=== PATIENT | male | born 1965 | race Caucasian/White ===

== ENCOUNTER → 2024-04-05 13:08 | Outpatient (BNVA) | payer MEDICARE, MEDICAID, SELFPAY | PROVIDERS: Family Provider Nurse Practitioner Family; PCP Nurse Practitioner Family; Referring Provider Nurse Practitioner Family; Visit Provider Internal Medicine Cardiovascular Disease | DX: G47.33 Obstructive sleep apnea (adult) (pediatric) (principal); E11.9 Type 2 diabetes mellitus without complications; E78.5 Hyperlipidemia, unspecified; Z86.79 Personal history of other diseases of the circulatory system; I10 Essential (primary) hypertension; Z87.891 Personal history of nicotine dependence | CPT/HCPCS: 99204 ==

== ENCOUNTER → 2024-09-26 13:01 | Outpatient (BNVA) | payer MEDICARE, MEDICAID, SELFPAY | PROVIDERS: Family Provider Nurse Practitioner Family; PCP Nurse Practitioner Family; Visit Provider Nurse Practitioner Family | DX: I10 Essential (primary) hypertension (principal); Z86.79 Personal history of other diseases of the circulatory system; G47.33 Obstructive sleep apnea (adult) (pediatric); E11.9 Type 2 diabetes mellitus without complications; Z87.891 Personal history of nicotine dependence | CPT/HCPCS: 99213 ==

== ENCOUNTER 2025-07-21 14:20 | Observation (INO) | payer MEDICARE, MEDICAID, SELFPAY ==
[2025-07-21] VITALS (11 sets, daily range): BP systolic 113–145; BP diastolic 66–81; PULSE 72–92; RESP 16–21; TEMP 36.3–36.4; O2SAT 91–95; BMI 34.7; BMI 35.6
--- OUTSIDE RECORDS SUMMARY | 2025-07-21 14:27 | XMS_ITS | Encounter Summary ---
Author Organization [facility] Address [address] [place] [address] Care Team Providers Care Railroad Car Cleaner Name Role Phone Brigido Mahajan MD Primary Care Provider [phone] [phone] Encounter Details Date Type Department Care Team (Latest Contact Info) Description 01/14/[address] 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
--- OUTSIDE RECORDS SUMMARY | 2025-07-21 14:27 | XMS_ITS | Encounter Summary ---
Author Organization [facility] Address [address] [place] [address] Care Team Providers Care Tree Sapper Name Role Phone Brigido Mahajan MD Primary Care Provider Encounter Details Date Type Department Care Team (Latest Contact Info) Description 05/06/2006 Outpatient Historical [facility] Cardiology- [place] [address] [address] Jeremias Mayen MD [address] [address] Atrial Fibrillation (CMS/HCC) (Primary Dx) Social History Tobacco Use Types Packs/Day Years Used Date Smoking Tobacco: Never Assessed Sex and Gender Information Value Date Recorded Sex Assigned at Not on file 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
--- OUTSIDE RECORDS SUMMARY | 2025-07-21 14:27 | XMS_ITS | Encounter Summary ---
Author Organization [facility] Address [address] [place] [address] Care Team Providers Care Cisco Certified Internetwork Expert Name Role Phone Brigido Mahajan MD Primary Care Provider [phone] Encounter Details Date Type Department Care Team (Latest Contact Info) Description 05/20/2006 Outpatient Historical [facility] [address] [place] [address] Turner Flynn MD NO ADDRESS ON FILE Obstructive Sleep Apnea (Primary Dx) Social History Tobacco Use Types Packs/Day Years Used Date Smoking Tobacco: Never Assessed Sex and Gender Information Value Date Recorded Sex Assigned at Not on file 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
--- OUTSIDE RECORDS SUMMARY | 2025-07-21 14:27 | XMS_ITS | Encounter Summary ---
Author Organization [facility] Address [address] [place] [address] Care Team Providers Care Sand Conditioner Name Role Phone Brigido Mahajan MD Primary Care Provider Encounter Details Date Type Department Care Team (Latest Contact Info) Description 02/04/2006 Outpatient Historical [facility] Cardiology- [place] [address] [place] [address] Jeremias Mayen MD [address] [address] Palpitations (Primary Dx); Atrial Fibrillation (CMS/HCC) Social History Tobacco Use Types Packs/Day Years Used Date Smoking Tobacco: Never Assessed Sex and Gender Information Value Date Recorded Sex Assigned at Not on file 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
--- OUTSIDE RECORDS SUMMARY | 2025-07-21 14:27 | XMS_ITS | Encounter Summary ---
Author Organization [facility] Address [address] [place] [address] Care Team Providers Care Sped Teacher Name Role Phone Brigido Mahajan MD Primary Care Provider [phone] Encounter Details Date Type Department Care Team (Latest Contact Info) Description 04/07/2006 Outpatient Historical [facility] Cardiology- [place] [address] [place] [address] Nikki Chowdary MD [address] [place] [address] Paroxysmal Supraventricular Tachycardia (Primary Dx); Atrial Fibrillation (CMS/HCC) Social History Tobacco Use Types Packs/Day Years Used Date Smoking Tobacco: Never Assessed Sex and Gender Information Value Date Recorded Sex Assigned at Not on file 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
--- OUTSIDE RECORDS SUMMARY | 2025-07-21 14:27 | XMS_ITS | Encounter Summary ---
Author Organization [facility] Address [address] [place] [address] Care Team Providers Care Ham Pumper Name Role Phone Brigido Mahajan MD Primary Care Provider Encounter Details Date Type Department Care Team (Latest Contact Info) Description 02/04/2006 Outpatient Historical [facility] Cardiovascular Services [address] [place] [address] Jeremias Mayen MD [address] [address] Supraventricular Premature Beats (Primary Dx) Social History Tobacco Use Types Packs/Day Years Used Date Smoking Tobacco: Never Assessed Sex and Gender Information Value Date Recorded Sex Assigned at Not on file 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
--- OUTSIDE RECORDS SUMMARY | 2025-07-21 14:27 | XMS_ITS | Encounter Summary ---
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
--- OUTSIDE RECORDS SUMMARY | 2025-07-21 14:27 | XMS_ITS | Encounter Summary ---
Author Organization [facility] Address [address] [place] [address] Care Team Providers Care Maintenance Parts Technician Name Role Phone Brigido Mahajan MD Primary Care Provider [phone] Encounter Details Date Type Department Care Team (Latest Contact Info) Description 12/09/2006 Outpatient Historical [facility] Cardiology- [place] [address] [place] [address] Jeremias Mayen MD [address] [address] Unspecified Hypertensive Heart Disease without Heart Failure (Primary Dx); Atrial Fibrillation (CMS/HCC); Unspecified Chest Pain Social History Tobacco Use Types Packs/Day Years Used Date Smoking Tobacco: Never Assessed Sex and Gender Information Value Date Recorded Sex Assigned at Not on file Legal Sex Male 3:58 AM PATIENT CARE REPRESENTATIVE Gender Identity Not on file Sexual Orientation Not on file documented as of this encounter Plan of Treatment Not on file documented as of this encounter Visit Diagnoses Diagnosis Unspecified hypertensive heart disease without heart failure- Primary Atrial fibrillation (CMS/HCC) Atrial fibrillation Chest pain, unspecified documented in this encounter Care Teams Maintenance Parts Technician Relationship Specialty Start Date End Date Brigido Mahajan MD [address] [place], [place] [address] PCP - General Family Practice 04/11/16 documented as of this encounter
--- OUTSIDE RECORDS SUMMARY | 2025-07-21 14:27 | XMS_ITS | Encounter Summary ---
Author Organization [facility] Address [address] [place] [address] Care Team Providers Care Program Engagement Director Name Role Phone Brigido Mahajan MD Primary Care Provider [phone] Encounter Details Date Type Department Care Team (Latest Contact Info) Description 05/20/2006 Outpatient Historical [facility] [address] [place] [address] Turner Flynn MD NO ADDRESS ON FILE Other Dyspnea and Respiratory Abnormality (Primary Dx) Social History Tobacco Use Types Packs/Day Years Used Date Smoking Tobacco: Never Assessed Sex and Gender Information Value Date Recorded Sex Assigned at Not on file 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
--- OUTSIDE RECORDS SUMMARY | 2025-07-21 14:27 | XMS_ITS | Encounter Summary ---
Author Organization [facility] Address [address] [place] [address] Care Team Providers Care Gum Rolling Machine Operator Name Role Phone Brigido Mahajan MD Primary Care Provider [phone] Encounter Details Date Type Department Care Team (Latest Contact Info) Description 07/01/[address] 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
--- OUTSIDE RECORDS SUMMARY | 2025-07-21 14:27 | XMS_ITS | Encounter Summary ---
Author Organization [facility] Address [address] [place] [address] Care Team Providers Care Cold Press Loader Name Role Phone Unavailable Primary Care Provider Unavailabl e Encounter Details Date Type Department Care Team (Late st Contact Info) Description 07/18/2025 External Device Data ST[facility] ABSTRACTION Provider, Abstract NO ADDRESS ON FILE Social History Tobacco Use Types Packs/Day Years Used Date Smoking Tobacco: Former Cigarettes Q uit: 11/09/2007 Alcohol Use Standard Drinks/Week Comments No 0 (1 standard drink = 0.6 oz pur e alcohol) Sex and Gender Information Value Date Recorded Sex Assigned at Not on file Legal Sex Male 11:19 AM FRAUD EXAMINER Gender Identity Not on file Sexual Orientation Not on file documented as of this encounter Plan of Treatment Not on file documented as of this encounter Visit Diagnoses Not on filedocumented in this encounter
--- OUTSIDE RECORDS SUMMARY | 2025-07-21 14:28 | XMS_ITS | Encounter Summary ---
Author Organization [facility] Address [address] [place] [address] Care Team Providers Care Debt Management Counselor Name Role Phone Brigido Mahajan MD Primary Care Provider [phone] Encounter Details Date Type Department Care Team (Latest Contact Info) Description 12/11/2006 Outpatient Historical [facility] Cardiovascular Services [address] [place] [address] Jeremias Mayen MD [address] [address] Unspecified Chest Pain (Primary Dx) Social History Tobacco Use Types Packs/Day Years Used Date Smoking Tobacco: Never Assessed Sex and Gender Information Value Date Recorded Sex Assigned at Not on file 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
--- OUTSIDE RECORDS SUMMARY | 2025-07-21 14:28 | XMS_ITS | Encounter Summary ---
Author Organization [facility] Address [address] [place] [address] Care Team Providers Care Vocational Teacher Name Role Phone Brigido Mahajan MD Primary Care Provider Encounter Details Date Type Department Care Team (Latest Contact Info) Description 08/16/1999 Outpatient Historical [facility] [address] [address] Kady Matt MD [address] [place] [phone] Acute tonsillitis (Primary Dx) Social History Tobacco Use Types Packs/Day Years Used Date Smoking Tobacco: Never Assessed Sex and Gender Information Value Date Recorded Sex Assigned at Not on file Legal Sex Male 3:58 AM LEAD CAREGIVER Gender Identity Not on file Sexual Orientation Not on file documented as of this encounter Plan of Treatment Not on file documented as of this encounter Visit Diagnoses Diagnosis Acute tonsillitis- Primary documented in this encounter Care Teams Vocational Teacher Relationship Specialty Start Date End Date Brigido Mahajan MD [address] [place] [address] PCP - General Family Practice 04/11/16 documented as of this encounter
--- OUTSIDE RECORDS SUMMARY | 2025-07-21 14:28 | XMS_ITS | Encounter Summary ---
Author Organization [facility] Address [address] [place] [address] Care Team Providers Care Surgical Tech Name Role Phone Brigido Mahajan MD Primary Care Provider Encounter Details Date Type Department Care Team (Late st Contact Info) Description 12/11/2006 Outpatient Historical [facility] Cardiology Ancillary Services-[place] [address] [place] [address] Jeremias Mayen MD [address] [facility] [address] [place] [address] Unspecified Chest Pain (Primary Dx) Social History Tobacco Use Types Packs/Day Years Used Date Smoking Tobacco: Never Assessed Sex and Gender Information Value Date Recorded Sex Assigned at Not on file Legal Sex Male 3:58 AM DRAPERY AND UPHOLSTERY MEASURER Gender Identity Not on file Sexual Orientation Not on file documented as of this encounter Plan of Treatment Not on file documented as of this encounter Procedures Procedure Name Priority Date/Time Associated Diagnosis Comments NM MYOCARD PERF IMAG SPECT MULT Routine 12/11/2006 8:30 AM DRAPERY AND UPHOLSTERY MEASURER NM MYOCARD PERF IMAG SPECT MULT Routine 12/11/2006 8:30 AM DRAPERY AND UPHOLSTERY MEASURER documented in this encounter Results * NM MYOCARD PERF IMAG SPECT MULT (12/11/2006 8:30 AM DRAPERY AND UPHOLSTERY MEASURER) 12/11/2006 8:30 AM DRAPERY AND UPHOLSTERY MEASURER Narrative INTERFACE SYSTEM - 12/11/2006 8:30 AM DRAPERY AND UPHOLSTERY MEASURER MYOCARDIAL PERFUSION SPECTROSCOPY / STRESS AND REST IMAGES Indication: Chest pain. Radiopharmaceutical agent used. Tc-99m (technetium-99m) tetrofosmin with 17.2 mCi for rest and 51.9 mCi for stress. Findings: Planar images demonstrate grossly normal left ventricular chamber dimension without any significant radiopharmaceutical uptake in the lung persaud. Tomographic images demonstrate homogeneous radiopharmaceutical agent uptake in the myocardium without any reversible defect nor fixed defect. Gated images demonstrate normal left ventricular systolic function with a calculated ejection fraction of 66% with end-diastolic volume of 76 mL and end-systolic of 26 mL and normal left ventricular wall motion. IMPRESSION: 1. No obvious ischemia noted. 2. Normal left ventricular systolic function. 3. Overall low risk study. [facility] 155 Dictated By: Jeremias Mayen Electronically Signed By: Jeremias Mayen Date Signed: 12/18/06 [facility] Procedure Note 09/28/2009 MYOCARDIAL PERFUSION SPECTROSCOPY / STRESS AND REST IMAGES Indication: Chest pain. Radiopharmaceutical agent used. Tc-99m (technetium-99m) tetrofosmin with17.2 mCi for rest and 51.9 mCi for stress. Findings: Planar images demonstrate grossly normal left ventricular chamberdimension without any significant radiopharmaceutical uptake in the lung persaud. Tomographic images demonstrate homogeneous radiopharmaceutical agentuptake in the myocardium without any reversible defect nor fixed defect. Gated images demonstrate normal left ventricular systolic function with acalculated ejection fraction of 66% with end-diastolic volume of 76 mL and end-systolic of 26 mL andnormal left ventricular wall motion. IMPRESSION: 1. No obvious ischemia noted. 2. Normal left ventricular systolic function. 3. Overall low risk study. [facility] 155 Dictated By: Jeremias Mayen Electronically Signed By: Jeremias Mayen Date Signed: 12/18/06 [facility] us Jeremias DONAHUE ORDERABLES Final Result INTERFACE SYSTEM Refer to clinic/hospital department * NM MYOCARD PERF IMAG SPECT MULT (12/11/2006 8:30 AM DRAPERY AND UPHOLSTERY MEASURER) 12/11/2006 8:30 AM DRAPERY AND UPHOLSTERY MEASURER Narrative INTERFACE SYSTEM - 12/11/2006 8:[address] [facility] CARDIAC STRESS TEST WITH TREADMILL, MONITORING, AND INTERPRETATION: INDICATION: Chest pain, hypertension, hyperlipidemia, tobacco use, atrial fibrillation. Resting blood pressure was 148/90 mmHg with a heart rate of 98 beats per minute. Peak blood pressure was 196/70 mmHg. Peak heart rate achieved was 165 beats per minute (92% of maximal predicted heart rate). Resting electrocardiogram showed sinus rhythm at 96 beats per minute, RSR pattern. With exercise, the patient developed 0.5 to 1 mm of up-sloping ST depression. No arrhythmias were seen. The patient walked 9 minutes on a standard Michael protocol. Test was discontinued due to shortness of breath, fatigue, and reported chest tightness. Total workload achieved was 10.1 METs with a double-product of 31,350. At 8 minutes into exercise, 51.9 mCi of Tc-99m (technetium-99m) tetrofosmin were injected. IMPRESSION: 1. Patient reported chest tightness during treadmill. 0.5 to 1 mm of up-sloping ST depression was noted which does not meet diagnostic criteria for ischemia at moderate workload and 92% of maximal predicted heart rate. 2. Good exercise tolerance, attaining 10.1 METs of workload. 3. Results of myocardial perfusion imaging will be reported separately. gissel Dictated By: Liu Torres M.D. Electronically Signed By: Liu Torres M.D. Date Signed: 12/14/06 [facility] Procedure Note 09/28/2009 CARDIAC STRESS TEST WITH TREADMILL, MONITORING, AND INTERPRETATION: INDICATION: Chest pain, hypertension, hyperlipidemia, tobacco use, atrialfibrillation. Resting blood pressure was 148/90 mmHg with a heart rate of 98 beats perminute. Peak blood pressure was 196/70 mmHg. Peak heart rate achieved was 165 beats per minute (92% ofmaximal predicted heart rate). Resting electrocardiogram showed sinus rhythm at 96 beats per minute, RSRpattern. With exercise, the patient developed 0.5 to 1 mm of up-sloping ST depression. No arrhythmiaswere seen. The patient walked 9 minutes on a standard Michael protocol. Test wasdiscontinued due to shortness of breath, fatigue, and reported chest tightness. Total workload achievedwas 10.1 METs with a double-product of 31,350. At 8 minutes into exercise, 51.9 mCi of Tc-99m (technetium-99m)tetrofosmin were injected. IMPRESSION: 1. Patient reported chest tightness during treadmill. 0.5 to 1 mm ofup-sloping ST depression was noted which does not meet diagnostic criteria for ischemia at moderate workloadand 92% of maximal predicted heart rate. 2. Good exercise tolerance, attaining 10.1 METs of workload. 3. Results of myocardial perfusion imaging will be reported separately. gissel Dictated By: Liu Torres M.D. Electronically Signed By: Liu Torres M.D. Date Signed: 12/14/06 [facility] us Jeremias Mayen MD NM ORDERABLES Final Result INTERFACE SYSTEM Refer to clinic/hospital department documented in this encounter Visit Diagnoses Diagnosis Chest pain, unspecified- Primary documented in this encounter Care Teams Surgical Tech Relationship Specialty Start Date End Date Brigido Mahajan MD [address] [place] [address] PCP - General Family Practice 04/11/16 documented as of this encounter
--- OUTSIDE RECORDS SUMMARY | 2025-07-21 14:28 | XMS_ITS | Encounter Summary ---
Author Organization [facility] Address [address] [place] [address] Care Team Providers Care Weaver Wire Loom Name Role Phone Brigido Mahajan MD Primary Care Provider [phone] Encounter Details Date Type Department Care Team (Late st Contact Info) Description 09/13/2004 Emergency [facility] Emergency Department [address] [place] [id number] Hugo Moreno MD [facility] [place] [address] ATRIAL FIBRILLATION (CMS/HCC) (Primary Dx) Social History Tobacco Use Types Packs/Day Years Used Date Smoking Tobacco: Never Assessed Sex and Gender Information Value Date Recorded Sex Assigned at Not on file 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
--- OUTSIDE RECORDS SUMMARY | 2025-07-21 14:28 | XMS_ITS | Encounter Summary ---
Author Organization [facility] Address [address] [place] [address] Care Team Providers Care Handkerchief Presser Name Role Phone Brigido Mahajan MD Primary Care Provider Encounter Details Date Type Department Care Team (Latest Contact Info) Description 01/14/2006 Outpatient Historical [facility] Cardiovascular Services [address] [place] [address] Jeremias Mayen MD [address] [address] Palpitations (Primary Dx) Social History Tobacco Use Types Packs/Day Years Used Date Smoking Tobacco: Never Assessed Sex and Gender Information Value Date Recorded Sex Assigned at Not on file 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
--- OUTSIDE RECORDS SUMMARY | 2025-07-21 14:28 | XMS_ITS | Encounter Summary ---
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
--- OUTSIDE RECORDS SUMMARY | 2025-07-21 14:28 | XMS_ITS | Encounter Summary ---
Author Organization [facility] Address [address] [place] [address] Care Team Providers Care Tin Assorter Name Role Phone Brigido Mahajan MD Primary Care Provider Encounter Details Date Type Department Care Team (Latest Contact Info) Description 04/02/2004 Outpatient Historical [facility] Medicine [place] [address], [place] [phone] Jc Fletcher MD [address], [place] [address] CARDIAC DYSRHYTHMIAS NEC (Primary Dx) Social History Tobacco Use Types Packs/Day Years Used Date Smoking Tobacco: Never Assessed Sex and Gender Information Value Date Recorded Sex Assigned at Not on file 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
--- OUTSIDE RECORDS SUMMARY | 2025-07-21 14:28 | XMS_ITS | Clinical Summary ---
Author Organization [facility] Address [address] [place] [address] Care Team Providers Care Fios Line Installer Name Role Phone Unavailable Primary Care Provider Unavailabl e Allergies Active Allergy Reactions Criticality Noted Date Comments Brompheniramine-Pseudoephedr i n Other (See Comments) 01/29/2010 Elevated BP Hydrochlorothiazide Swelling Low 01/29/2010 Medications oxyCODONE IR (OXY-IR) 5 mg Capsule Take 5 mg by mouth. 6 Active pravastatin (PRAVACHOL) 40 mg tablet 6 Active fluticasone propionate (FLONASE) 50 mcg/spray [place], Suspension nasal inhaler 6 Active vilazodone (Viibryd) 40 mg Tablet 6 Active allopurinoL (ZYLOPRIM) 300 mg tablet Take 300 mg by mouth daily. 3 Active amitriptyline (ELAVIL) 50 mg tablet Take 50 mg by mouth daily at bedtime. Active cyclobenzaprin e (FLEXERIL) 10 mg tablet Take 10 mg by mouth every 12 hours as needed. Active diltiaZEM (TIAZAC) 360 mg Extended Release capsule Take 360 mg by mouth daily. 3 Active Trulicity 1.5 mg/0.5 mL injection INJECT CONTENTS OF 1 SYRINGE SUBCUTANEOUSLY ONCE A WEEK 3 Active gemfibroziL (LOPID) 600 mg tablet Take 600 mg by mouth 2 times daily. 3 Active glimepiride (AMARYL) 2 mg tablet Take 2 mg by mouth daily. 3 Active venlafaxine (EFFEXOR XR) 150 mg Extended Release 24 hour capsule Take 150 mg by mouth daily. 3 Active oxyCODONE IR (OXY-IR) 5 mg Capsule Take 5 mg by mouth. Active gabapentin (NEURONTIN) 100 mg capsuleIndicat ions:Neuropath y due to type 2 diabetes mellitus (CMS/HCC) Take 1 Capsule (100 mg) by mouth 3 times daily as needed for Pain. 90 Capsule 3 Active lisinopriL (PRINIVIL) 40 mg tablet Take 1 Tablet (40 mg) by mouth daily. 90 Tablet 2 3 Active Active Problems Problem Noted Date Diagnosed Date Neuropathy due to type 2 diabetes mellitus 03/17 Type 2 diabetes mellitus wit h diabetic neuropathy, without long-term current use of insulin 03/17/2023 Acute gouty arthropathy 01/29/2010 HBP (high blood pressure) 01/29/2010 Obesity, unspecified 01/29/2010 Depression 01/29/2010 PAT (paroxysmal atrial tachycardia) 01/29/2010 Encounters Date Type Department Care Team Description 07/18/2025 External Device Data ST[facility] ABSTRACTION Provider, Abstract 07/11/2025 External Device Data [facility] ABSTRACTION Provider, Abstract 06/28/2025 External Device Data [facility] ABSTRACTION Provider, Abstract 06/20/2025 External Device Data [facility] ABSTRACTION Provider, Abstract 05/24/2025 External Device Data [facility] ABSTRACTION Provider, Abstract 05/24/2025 External Device Data ST[facility] ABSTRACTION Provider, Abstract 04/26/2025 External Device Data ST[facility] ABSTRACTION Provider, Abstract 04/25/2025 External Device Data ST[facility] ABSTRACTION Provider, Abstract from Last 3 Months Family History Medical History Relation Name Comments Migraines Brother Diabetes Father Heart Disease Father Hypertension Father Arthritis-osteo Mother Migraines Mother Colon Cancer Neg Hx Relation Name Status Comments Brother Alive Daughter Alive Father Alive Mother Alive Social History Tobacco Use Types Packs/Day Years Used Date Smoking Tobacco: Former Cigarettes Q uit: 11/09/2007 Alcohol Use Standard Drinks/Week Comments No 0 (1 standard drink = 0.6 oz pur e alcohol) Sex and Gender Information Value Date Recorded Sex Assigned at Not on file 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 Gender Identity Not on file Sexual Orientation Not on file Last Filed Vital Signs Vital Sign Reading Time Taken Comments Blood Pressure 118/78 03/17/2023 12:11 PM CDT Pulse 89 03/17/2023 12:11 PM CDT Temperature 36.4 C (97.5 F) 03/17/2023 12:11 PM CDT Respiratory Rate 18 04/11/2016 1:10 PM CDT Oxygen Saturation 92% 03/17/2023 12: 11 PM CDT Inhaled Oxygen Concentration - - Weight 132.5 kg (292 lb 3.2 oz) 023 12:11 PM CDT Height 198.1 cm (6' 6 ) 03/17/2023 12:1 1 PM CDT Body Mass Index 33.77 03/17/2023 12:11 PM CDT Plan of Treatment Health Maintenance Due Date Last Done Comments DIABETES ANNUAL FOOT EXAM 1983 DIABETES MICROALBUMIN ANNUAL SCREEN 1983 DTAP/TDAP/TD VACCINES (1 - Tdap) 1984 HEPATITIS B VACCINES (1 of 3 - 19+ 3-dose series) 1984 FIT-DNA Q 3 years 2010 FIT/FOBT Q 1 year 2010 Flex Sig/CT Colonography Q 5 years 2010 ZOSTER VACCINE (1 of 2) 2015 DIABETES ANNUAL RETINAL EXAM 06/04/2019, 11/20/2017, 11/20/2017, Additional history exists DIABETES HBA1C Q 6 MONTHS 07/24/20232022, 10/23/2022, 07/24/2022, Additional history exists LDL CHOLESTEROL ANNUAL 01/22/2024 3, 07/24/2022, 07/22/2021 INFLUENZA VACCINE (#1) 2025 COLORECTAL SCREENING 04/11/2026 04/11/2016, 04/11/20 16 Colorectal Cancer Screening 04/11/2026 Procedures Procedure Name Priority Date/Time Associated Diagnosis Comments LIPID PANEL Routine 01/21/2023 HEMOGLOBIN A1C Routine 01/21/2023 from Last 3 Months or Most Recently Relevant to Health Maintenance Results * HEMOGLOBIN A1C (01/21/2023) ABSTRACTED HGB A1C 6.4 Blood 01/21/2023 us Abstract Provider CHEMISTRY ORDERABLES Final Res ult * LIPID PANEL (01/21/2023) ABSTRACTED CHOLESTEROL 165 ABSTRACTED TRIGLYCERIDE 144 ABSTRACTED HDL 36 ABSTRACTED LDL CALCULATED 100 Blood 01/21/2023 us Abstract Provider CHEMISTRY ORDERABLES Final Res ult from Last 3 Months or Most Recently Relevant to Health Maintenance Insurance MEDICAID [place] Member Subscriber Plan / Payer (Ef fective 2023-Present) Name:Stevie Rushing Relation to Subscriber:Self Name:Stevie Rushing Payer ID:Not on file Group ID:Not on file Type:Medicaid Address: [address] [id number] BCBS MEDICARE HMO
--- OUTSIDE RECORDS SUMMARY | 2025-07-21 14:28 | XMS_ITS | Encounter Summary ---
Author Organization [facility] Address [address] [place] [address] Care Team Providers Care Wait Staff Name Role Phone Brigido Mahajan MD Primary Care Provider Encounter Details Date Type Department Care Team (Latest Contact Info) Description 09/13/2004 Outpatient Historical [facility] Medicine [address] [address] Kady Matt MD [address] [place] [phone] CARDIAC DYSRHYTHMIAS NEC (Primary Dx) Social History Tobacco Use Types Packs/Day Years Used Date Smoking Tobacco: Never Assessed Sex and Gender Information Value Date Recorded Sex Assigned at Not on file 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
--- OUTSIDE RECORDS SUMMARY | 2025-07-21 14:28 | XMS_ITS | Encounter Summary ---
Author Organization [facility] Address [address] [place] [address] Care Team Providers Care Chartered Financial Analyst Name Role Phone Brigido Mahajan MD Primary Care Provider [phone] Encounter Details Date Type Department Care Team (Latest Contact Info) Description 01/15/2005 Outpatient Historical [facility] [address] 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
--- OUTSIDE RECORDS SUMMARY | 2025-07-21 14:28 | XMS_ITS | Encounter Summary ---
Author Organization [facility] Address [address] 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
--- OUTSIDE RECORDS SUMMARY | 2025-07-21 14:28 | XMS_ITS | Encounter Summary ---
Author Organization [facility] Address [address] [place] [address] Care Team Providers Care Flour Distributor Name Role Phone Brigido Mahajan MD Primary Care Provider Encounter Details Date Type Department Care Team (Latest Contact Info) Description 04/11/1999 Outpatient Historical [facility] Medicine [address] [address] Kady Matt MD [address] [place] [phone] Dysthymic disorder (Primary Dx) Social History Tobacco Use Types Packs/Day Years Used Date Smoking Tobacco: Never Assessed Sex and Gender Information Value Date Recorded Sex Assigned at Not on file 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
--- OUTSIDE RECORDS SUMMARY | 2025-07-21 14:28 | XMS_ITS | Encounter Summary ---
Author Organization [facility] Address [address] [place] [address] Care Team Providers Care Cosmetic Dentist Name Role Phone Brigido Mahajan MD Primary Care Provider Encounter Details Date Type Department Care Team (Latest Contact Info) Description 04/30/1999 Outpatient Historical [facility] Medicine [address] [phone] Kady Matt MD [address] [place] [phone] Other malaise and fatigue (Primary Dx) Social History Tobacco Use Types Packs/Day Years Used Date Smoking Tobacco: Never Assessed Sex and Gender Information Value Date Recorded Sex Assigned at Not on file 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
--- OUTSIDE RECORDS SUMMARY | 2025-07-21 14:28 | XMS_ITS | Clinical Summary ---
Author Organization [facility] Address [address] [place] [address] Care Team Providers Care Last Scourer Name Role Phone Brigido Mahajan MD Primary Care Provider Allergies Active Allergy Reactions Criticality Noted Date Comments Brompheniramine-Pseudoephedr i n Other (See Comments) 01/29/2010 Elevated BP Hydrochlorothiazide Swelling Low 01/29/2010 Medications diltiazem CD 24 hour (CARDIZEM CD) 360 mg Oral capsule Take 360 mg by mouth daily. Active lisinopril (PRINIVIL) 40 mg Oral tablet Take 40 mg by mouth daily. Active buPROPion SR 12 hour (WELLBUTRIN-SR) 150 mg Oral tablet Take 150 mg by mouth daily. Active amitriptyline (ELAVIL) 50 mg Oral tablet Take 50 mg by mouth daily at bedtime. Active allopurinol (ZYLOPRIM) 300 mg Oral tablet Take 300 mg by mouth daily. Active cyclobenzaprine (FLEXERIL) 10 mg Oral tablet Take 10 mg by mouth 2 times daily as needed for Spasm. Active colchicine 0.6 mg Oral tablet Take 1 Tab by mouth 2 times daily. 60 Tab 3 01/29/2010 Active indomethacin (INDOCIN) 50 mg Oral capsule Take 1 Cap by mouth 3 times daily. 100 Cap 1 02/19/2010 Active predniSONE (DELTASONE) 10 mg Oral tablet Take by mouth daily. As directed 40 Tab 0 03/05/2010 Active pravastatin (PRAVACHOL) 40 mg tablet 03/05/2016 Active VIIBRYD 40 mg Tablet 03/05/2016 Active fluticasone (FLONASE) 50 mcg/spray [place], Suspension 03/05/2016 Active oxyCODONE IR (OXY-IR) 5 mg Capsule Take 5 mg by mouth. Active Active Problems Problem Noted Date Diagnosed Date Acute gouty arthropathy 01/29/2010 Depression 01/29/2010 HBP (high blood pressure) 01/29/2010 Obesity, unspecified 01/29/2010 PAT (paroxysmal atrial tachycardia) 01/29/2010 Family History Medical History Relation Name Comments Migraines Brother Diabetes Father Heart Disease Father Hypertension Father Arthritis-osteo Mother Migraines Mother Colon Cancer Neg Hx Relation Name Status Comments Brother Alive Daughter Alive Father Alive Mother Alive Social History Tobacco Use Types Packs/Day Years Used Date Smoking Tobacco: Former Cigarettes 1.5 23 0 11/09/1984 - 11/09/2007 Alcohol Use Standard Drinks/Week Comments No 0 (1 standard drink = 0.6 oz pur e alcohol) quit 4 yrs ago Sex and Gender Information Value Date Recorded Sex Assigned at Not on file 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 Sex Male 3:58 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 Gender Identity Not on file Sexual Orientation Not on file Last Filed Vital Signs Vital Sign Reading Time Taken Comments Blood Pressure 134/72 01/15/2017 12:00 PM VALIDATION SOFTWARE FACILITATOR Pulse 72 01/15/2017 12:00 PM VALIDATION SOFTWARE FACILITATOR Temperature 37.2 C (99 F) 04/11/2016 11:08 AM CDT Respiratory Rate 18 04/11/2016 1:10 PM CDT Oxygen Saturation 95% 01/15/2017 12:00 PM VALIDATION SOFTWARE FACILITATOR Inhaled Oxygen Concentration - - Weight 145.6 kg (321 lb) 01/15/2017 12:00 PM VALIDATION SOFTWARE FACILITATOR Height 198.1 cm (6' 6 ) 01/15/2017 12:00 PM VALIDATION SOFTWARE FACILITATOR Body Mass Index 37.1 01/15/2017 12:00 PM VALIDATION SOFTWARE FACILITATOR Plan of Treatment Health Maintenance Due Date Last Done Comments DTAP/TDAP/TD VACCINES (1 - Tdap) 1984 HEPATITIS B VACCINES (1 of 3 - 19+ 3-dose series) 1984 FIT-DNA Q 3 years 2010 FIT/FOBT Q 1 year 2010 Flex Sig/CT Colonography Q 5 years 2010 ZOSTER VACCINE (1 of 2) 2015 INFLUENZA VACCINE (#1) 2025 COLORECTAL SCREENING 04/11/2026 04/11/2016, 04/11/20 16 Colorectal Cancer Screening 04/11/2026 Procedures Procedure Name Priority Date/Time Associated Diagnosis Comments ENDOSCOPY, COLON, SCREENING Routine 04/11/2016 10:56 AM CDT Special screening for malignant neoplasms, colon from Last 3 Months or Most Recently Relevant to Health Maintenance Insurance MEDICARE PART A AND B MEDICAID [facility] MEDICARE ADVANTAGE PPO Care Teams Last Scourer Relationship Specialty Start Date End Date Brigido Mahajan MD [address] [place] [address] PCP - General Family Practice 04/11/16
--- OUTSIDE RECORDS SUMMARY | 2025-07-21 14:28 | XMS_ITS | Encounter Summary ---
Author Organization [facility] Address [address] [place] [address] Care Team Providers Care Credit Reference Clerk Name Role Phone Brigido Mahajan MD Primary Care Provider [phone] Encounter Details Date Type Department Care Team (Latest Contact Info) Description 09/13/2004 Outpatient Historical [facility] [address] 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
--- OUTSIDE RECORDS SUMMARY | 2025-07-21 14:28 | XMS_ITS | Encounter Summary ---
Author Organization [facility] Address [address] [place] [address] Care Team Providers Care Edge Burnisher Name Role Phone Brigido Mahajan MD Primary Care Provider Encounter Details Date Type Department Care Team (Latest Contact Info) Description 12/18/1999 Outpatient Historical [facility] Medicine [place] [address], [place] [phone] Jc Fletcher MD [address] [place] [phone] Injury, other and unspecified, elbow, forearm, and wrist (Primary Dx) Social History Tobacco Use Types Packs/Day Years Used Date Smoking Tobacco: Never Assessed Sex and Gender Information Value Date Recorded Sex Assigned at Not on file 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
--- OUTSIDE RECORDS SUMMARY | 2025-07-21 14:28 | XMS_ITS | Encounter Summary ---
Author Organization [facility] Address [address] [place] [address] Care Team Providers Care Reinspector Name Role Phone Brigido Mahajan MD Primary Care Provider Encounter Details Date Type Department Care Team (Latest Contact Info) Description 09/06/2004 Outpatient Historical [facility] [place] 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
--- NOTE | 2025-07-21 14:29 | CT_ITS ---
WS: [id number] CT HEAD TECHNIQUE: Noncontrast CT of the head obtained from the skullbase to the vertex. CLINICAL INFORMATION: Symptoms of acute stroke COMPARISON: MRI 2018 DLP: [address] scans at [facility] use at least one of these dose optimization techniques: automated exposure control; mA and/or kV adjustment per patient size (includes targeted exams where dose is matched to clinical indication); or iterative reconstruction. FINDINGS: No evidence of intracranial hemorrhage or mass effect. Ventricular system and basal cisterns are patent. Mild small vessel changes with mild parenchymal volume loss. No extra-axial fluid collections. No evidence of mass or mass effect. Vascular calcification. Paranasal sinuses and mastoid air cells are well aerated. .Mild soft tissue edema at the bilateral parietal scalp. CT/CT head thrombolytic 07388 IMPRESSION: 1. No evidence of intracranial hemorrhage or mass effect. 2. No acute intracranial findings. Notified Hardik Matt DO at 07/21/2025 2:49 PM.
--- NOTE | 2025-07-21 14:39 | W.ED.WEAKNES ---
HPI - Weakness General: Chief complaint: Weakness Stated complaint: stroke like symptoms (1.5hrsago) Time Seen by Provider: 07/21/25 14:29 Related Data Home Medications ?Medication ?Instructions ?Recorded ?Confirmed allopurinol 200 mg tablet 200 mg PO DAILY 04/05/24 09/26/24 amitriptyline 25 mg tablet 25 mg PO DAILY PRN 04/05/24 09/26/24 aspirin 81 mg tablet,delayed 81 mg PO DAILY 04/05/24 09/26/24 release clonidine HCl 0.1 mg tablet 0.1 mg PO BID 04/05/24 09/26/24 cyclobenzaprine 5 mg tablet 5 mg PO BID PRN 04/05/24 09/26/24 diltiazem HCl 360 mg 360 mg PO DAILY 04/05/24 09/26/24 capsule,extended release 24 hr (Cardizem CD) dulaglutide 1.5 mg/0.5 mL mg SUBCUT .weekly 04/05/24 09/26/24 subcutaneous pen injector ergocalciferol (vitamin D2) 50,000 unit PO .2 x weekly 04/05/24 09/26/24 unit tablet gemfibrozil 600 mg tablet 600 mg PO BID 04/05/24 09/26/24 glimepiride 4 mg tablet 4 mg PO DAILY 04/05/24 09/26/24 hydrochlorothiazide 50 mg tablet 50 mg PO DAILY 04/05/24 09/26/24 lisinopril 40 mg tablet 40 mg PO DAILY 04/05/24 09/26/24 venlafaxine 150 mg tablet,extended 150 mg PO DAILY 04/05/24 09/26/24 release 24 hr vitamin E mixed 400 unit capsule unit PO DAILY 04/05/24 09/26/24 Allergies Allergy/AdvReac Type Severity Reaction Status Date / Time No Known Allergies Allergy Unverified 09/26/24 13:29 [facility] ED PFSH: Medical History (Updated 09/27/24 @ 11:06 by Allyn Crawley NP) Hypertension H/O cardiac arrhythmia Hyperlipemia Family History Father Diabetes CAD (coronary artery disease) Hypertension Hyperlipidemia Social History Smoking and tobacco/nicotine status: former use of tobacco/nicotine Quit status (tobacco/nicotine): has quit using Year quit tobacco: 2007 Former quit date comment: smoked 2 packs per day x 20 years Alcohol intake: former Year of sobriety/quit date alcohol: 2007 Substance/Drug Use: current Substance/Drug use frequency: daily Household members: none Housing: House Marital status: Number of children: 1 Pets and animals: Yes Pets & animals: cat(s) Course Vital Signs: Vital signs: Vital Signs Temperature 97.6 F 07/21/25 14:25 Pulse Rate 92 07/21/25 14:25 Respiratory Rate 17 07/21/25 14:25 Blood Pressure 127/72 07/21/25 14:25 Pulse Oximetry 95 07/21/25 14:25 Oxygen Delivery Me thod Room Air 07/21/25 14:25 Discharge Plan Discharge Condition: Stable Prescriptions: No Action diltiazem HCl [Cardizem CD] 360 mg capsule,extended release 24hr 360 mg PO DAILY allopurinol 200 mg tablet 200 mg PO DAILY lisinopril 40 mg tablet 40 mg PO DAILY amitriptyline 25 mg tablet 25 mg PO DAILY PRN aspirin 81 mg tablet,delayed release (DR/EC) 81 mg PO DAILY clonidine HCl 0.1 mg tablet 0.1 mg PO BID cyclobenzaprine 5 mg tablet 5 mg PO BID PRN dulaglutide 1.5 mg/0.5 mL pen injector SUBCUT .weekly ergocalciferol (vitamin D2) 50,000 unit tablet PO .2 x weekly gemfibrozil 600 mg tablet 600 mg PO BID glimepiride 4 mg tablet 4 mg PO DAILY hydrochlorothiazide 50 mg tablet 50 mg PO DAILY venlafaxine 150 mg tablet extended release 24hr 150 mg PO DAILY vitamin E mixed 400 unit capsule PO DAILY Print Language: Thai Coding Level of Care Code ED Mica Paster for Sneha Nolasco
[2025-07-21 14:49] LABS: Hematocrit 45.9 % (37-53); Hemoglobin 15.30 g/dL (11.27-16.99); Mean Corpuscular HGB Conc 33.3 g/dL (30-55); Mean Corpuscular Hemoglobin 28.7 pg (27-33); Mean Corpuscular Volume 86.1 fl (82-101); Nucleated Red Blood Cells % 0 %; Platelet Count 280 10^3/cmm (157-399); Red Blood Count 5.33 10^6/uL (3.85-5.65); White Blood Count 7.57 10^3/uL (3.29-11.43)
--- NOTE | 2025-07-21 14:50 | CTR_ITS ---
PROCEDURE INFORMATION: Exam: CTA Head With Contrast, Arteriography Exam date and time: 07/21/2025 3:10 PM Age: 59 years old Clinical indication: Drowsiness or somnolence; Additional info: Tia/stroke TECHNIQUE: Imaging protocol: Computed tomographic angiography of the head with contrast. Exam focused on the arteries. 3D rendering (Not supervised by radiologist): MIP and/or 3D reconstructed images were created by the technologist. Radiation optimization: All CT scans at this facility use at least one of these dose optimization techniques: automated exposure control; mA and/or kV adjustment per patient size (includes targeted exams where dose is matched to clinical indication); or iterative reconstruction. Contrast material: OMNIPAQUE 350; Contrast volume: 100 ml; Contrast route: INTRAVENOUS (IV); COMPARISON: CT head thrombolytic 04200 07/21/2025 2:32 PM RADIATION DOSE METRICS: Total DLP (mGy-cm): 621.65 FINDINGS: ANTERIOR CIRCULATION: Right internal carotid artery: Intracranial segment is patent with no significant stenosis. No aneurysm. Small amount of atherosclerotic calcification of the cavernous segment. Right middle cerebral artery: No occlusion or significant stenosis. No aneurysm. Right anterior cerebral artery: No occlusion or significant stenosis. No aneurysm. Left internal carotid artery: Intracranial segment is patent with no significant stenosis. No aneurysm. Small amount of atherosclerotic calcification of the cavernous segment. Left middle cerebral artery: No occlusion or significant stenosis. No aneurysm. Left anterior cerebral artery: No occlusion or significant stenosis. No aneurysm. POSTERIOR CIRCULATION: Right vertebral artery: No occlusion or significant stenosis. No aneurysm. Left vertebral artery: No occlusion or significant stenosis. No aneurysm. Basilar artery: No occlusion or significant stenosis. No aneurysm. Right posterior cerebral artery: No occlusion or significant stenosis. No aneurysm. Left posterior cerebral artery: No occlusion or significant stenosis. No aneurysm. Brain: No definite mass, mass effect, or midline shift. Cerebral ventricles: No ventriculomegaly. Bones/joints: No acute findings. Soft tissues: Unremarkable. PROCEDURE INFORMATION: Exam: CTA Neck With Contrast Exam date and time: 07/21/2025 3:10 PM Age: 59 years old Clinical indication: Drowsiness or somnolence; Additional info: Tia/stroke TECHNIQUE: Imaging protocol: Computed tomographic angiography of the neck with contrast. Exam focused on the cervical segments of the vasculature. 3D rendering (Not supervised by radiologist): MIP and/or 3D reconstructed images were created by the technologist. Radiation optimization: All CT scans at this facility use at least one of these dose optimization techniques: automated exposure control; mA and/or kV adjustment per patient size (includes targeted exams where dose is matched to clinical indication); or iterative reconstruction. Contrast material: OMNIPAQUE 350; Contrast volume: 100 ml; Contrast route: INTRAVENOUS (IV); COMPARISON: CT head thrombolytic [id number] 07/21/2025 2:32 PM RADIATION DOSE METRICS: Total DLP (mGy-cm): 621.65 FINDINGS: Right common carotid artery: No stenosis. No dissection or occlusion. Mild atherosclerotic calcification at the carotid bulb/bifurcation. Right internal carotid artery: No stenosis of the extracranial segment. No dissection or occlusion. Right external carotid artery: No occlusion or stenosis of the origin. Left common carotid artery: No stenosis. No dissection or occlusion. Mild atherosclerotic calcification at the carotid bulb/bifurcation. Left internal carotid artery: No stenosis of the extracranial segment. No dissection or occlusion. Left external carotid artery: No occlusion or stenosis of the origin. Right vertebral artery: No stenosis. No dissection or occlusion. Left vertebral artery: No stenosis. No dissection or occlusion. Soft tissues: Unremarkable. Bones/joints: Spondylotic change C3 through C6 levels.. CT/CT angio headneck* [id number] IMPRESSION: No large vessel stenosis or occlusion. IMPRESSION: No stenosis or occlusion. REFERENCES: NASCET CRITERIA. The degree of stenosis in the cervical segment of the internal carotid artery is based on NASCET criteria. Normal is no stenosis. Mild is less than 50% stenosis. Moderate is 50-69% stenosis. Severe is 70% to 99% stenosis. Total occlusion is no detectable patent lumen.
--- NOTE | 2025-07-21 14:54 | ECG_ITS ---
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
[2025-07-21 14:59] LABS: INR 0.92 (0.8-1.2); Prothrombin Time 13.00 SECONDS (12.1-14.9)
[2025-07-21 15:00] LABS: Partial Thromboplastin Time 27.9 SECONDS (23.9-36.7)
[2025-07-21 15:04] LABS: Alanine Aminotransferase 33 U/L (0-41); Albumin Level 4.1 g/dL (3.5-5.2); Alkaline Phosphatase 97 U/L (40-130); Anion Gap 19.6 (5-19); Aspartate Amino Transferase 26 U/L (0-40); Blood Urea Nitrogen 17 mg/dL (6-20); Calcium 9.0 mg/dL (8.5-10.5); Carbon Dioxide 24 mmol/L (22-29); Chloride 99 mmol/L (98-107); Creatinine Clr Calc Pharmacy 94.5616; Globulin 2.6 g/dL (1.3-4.6); Glucose 280 mg/dL (65-115); Osmolality Calculated 300 mOsm/kg (285-295); Potassium 3.6 mmol/L (3.5-5.1); Sodium 139 mmol/L (136-145); Total Protein 6.7 g/dL (6.6-8.7)
[2025-07-21] MEDS: iohexol 350 mg/mL 500 mL Btl (per mL) IV (15:17)
--- NOTE | 2025-07-21 15:24 | W.ED.NEUROSD ---
HPI - Neuro Symptoms/Deficit General: Chief Complaint: Weakness Stated Complaint: stroke like symptoms (1.5hrsago) Time Seen by Provider: 07/21/25 14:29 History of Present Illness: 59-year-old male presents emergency room with complaints of difficulty with lightheadedness dizziness. He has a little bit of ataxia on the left as well. Last known well was at 1:00 he presents at 1420. Initial NIH is 2 with ataxia in the left leg and partial hemianopsia. Slurring of his speech has resolved. Both patient and the brother feel like he is getting better. He denies any other symptoms. He has not had any other symptoms prior. Associated symptoms: Deny chest pain Related Data Home Medications ?Medication ?Instructions ?Recorded ?Confirmed aspirin 81 mg tablet,delayed 81 mg PO DAILY 04/05/24 07/21/25 release diltiazem HCl 360 mg 360 mg PO DAILY 04/05/24 07/21/25 capsule,extended release 24 hr (Cardizem CD) dulaglutide 1.5 mg/0.5 mL 1.5 mg SUBCUT .weekly 04/05/24 07/21/25 subcutaneous pen injector glimepiride 4 mg tablet 4 mg PO DAILY 04/05/24 07/21/25 lisinopril 40 mg tablet 40 mg PO DAILY 04/05/24 07/21/25 venlafaxine 150 mg tablet,extended 150 mg PO DAILY 04/05/24 07/21/25 release 24 hr vitamin E mixed 400 unit capsule 400 unit PO DAILY 04/05/24 07/21/25 allopurinol 300 mg tablet 300 mg PO DAILY 07/21/25 07/21/25 clonidine HCl 0.2 mg tablet 0.2 mg PO BID 07/21/25 07/21/25 disulfiram 250 mg tablet 250 mg PO DAILY 07/21/25 07/21/25 ergocalciferol (vitamin D2) 1,250 1,250 mcg PO .2XWEEKLY 07/21/25 07/21/25 mcg (50,000 unit) capsule Previous Rx's ?Medication ?Instructions ?Recorded atorvastatin 40 mg tablet 40 mg PO BEDTIME #30 tabs 07/22/25 clopidogrel 75 mg tablet 75 mg PO DAILY #30 tabs 07/22/25 hydrochlorothiazide 25 mg tablet 50 mg (2 x 25 mg) PO DAILY #30 tabs 07/22/25 Allergies Allergy/AdvReac Type Severity Reaction Status Date / Time No Known Allergies Allergy Unverified 09/26/24 13:29 Review of Systems Const: Denies: fever(s) or chills Card: Denies: chest pain Resp: Denies: dyspnea GI: Denies: abdominal pain : Denies: dysuria, urinary frequency or urinary urgency Musc: Denies: neck pain or back pain Skin/Breast: Denies: rash PFSH ED PFSH: Medical History TIA (transient ischemic attack) Diabetes mellitus MARIANA (obstructive sleep apnea) Hypertension H/O cardiac arrhythmia Mixed hyperlipidemia Family History Father Diabetes CAD (coronary artery disease) Hypertension Hyperlipidemia Social History Smoking and tobacco/nicotine status: former use of tobacco/nicotine Quit status (tobacco/nicotine): has quit using Year quit tobacco: 2007 Former quit date comment: smoked 2 packs per day x 20 years Alcohol intake: former Year of sobriety/quit date alcohol: 2007 Substance/Drug Use: current Substance/Drug use frequency: daily Household members: none Housing: House Marital status: Number of children: 1 Pets and animals: Yes Pets & animals: cat(s) NIH stroke score NIHSS: Level Of Consciousness - 1a: 0 Level Of Consciousness Questions - 1b: Both Correct Level Of Consciousness Commands - 1c: Both Correct Best Gaze - 2: Normal Visual Gama - 3: Partial Hemianopia Facial Palsy - 4: Normal Motor Arm Right - 5: No Drift Motor Arm Left - 5: No Drift Motor Leg Right - 6: No Drift Motor Leg Left - 6: No Drift Limb Ataxia - 7: Present In One Limb Sensory - 8: Normal Best Language - 9: No Aphasia Dysarthia - 10: Normal Extinction And Inattention - 11: 0 Score: Total Score: 2 Physical Exam Const: GENERAL APPEARANCE: cooperative ORIENTATION/CONSCIOUSNESS: Yes awake, Yes oriented to person, Yes oriented to place and Yes oriented to time HENMT: COMMON NORMALS: normocephalic, atraumatic and hearing grossly normal bilaterally HEAD & SCALP: normocephalic and atraumatic Resp: COMMON NORMALS: normal respiratory effort, No retractions, No use of accessory muscles and clear to auscultation bilaterally AUSCULTATION: clear to auscultation bilaterally Cardio: COMMON NORMALS: regular rate, regular rhythm and No murmurs present (Cardio) RATE: regular rate RHYTHM: regular rhythm GI: COMMON NORMALS: Soft to palpation and No hepatosplenomegaly present AUSCULTATION: Yes normoactive bowel sounds PALPATION: Yes Soft to palpation, No Tenderness to palpation present (GI), No Guarding due to palpation present (GI) and Yes No hepatosplenomegaly present Extremity: COMMON NORMALS: normal to inspection, capillary refill normal, no clubbing, cyanosis or edema, no calf tenderness and no pedal edema Neuro: SENSORIUM/ORIENTATION: Yes oriented to person, Yes oriented to place and Yes oriented to time Skin: COMMON NORMALS: no rashes or lesions noted GENERAL SKIN EXAM: no rashes or lesions noted Course Vital Signs: Vital signs: Vital Signs Temperature 97.7 F 07/22/25 07:29 Pulse Rate 79 07/22/25 15:06 Respiratory Rate 18 07/22/25 15:06 Blood Pressure 155/95 07/22/25 15:06 Pulse Oximetry 95 07/22/25 15:06 Oxygen Delivery Me thod Room Air 07/22/25 12:25 MDM - Neuro Symptoms/Deficit Medical Decision Making Patient presents with strokelike symptoms he was a stroke alert EMS gave a story that based on their verbal report suspect that he had a NIH in the field of 4-5 on arrival here he has an NIH of 2. I discussed with [facility] on-call initially they are recommending that he receive TNKase because he has posterior leg symptoms with the dizziness however when I reevaluated the patient all of his symptoms had resolved and a repeat NIH was 0 we held off on giving TNKase will admit for further evaluation for TIA discussed with hospitalist orders written Medical Records I reviewed the patient's medical records. Lab Data I reviewed the patient's lab results. 07/21/25 14:42 07/21/25 14:[address] 07/21/25 14:29 IMPRESSION: 1. No evidence of intracranial hemorrhage or mass effect. 2. No acute intracranial findings. Notified Hardik Matt DO at 07/21/2025 2:49 PM. Head/Neck CTA 07/21/25 14:50 IMPRESSION: No large vessel stenosis or occlusion. IMPRESSION: No stenosis or occlusion. REFERENCES: NASCET CRITERIA. The degree of stenosis in the cervical segment of the internal carotid artery is based on NASCET criteria. Normal is no stenosis. Mild is less than 50% stenosis. Moderate is 50-69% stenosis. Severe is 70% to 99% stenosis. Total occlusion is no detectable patent lumen. Laboratory Results WBC 7.57 10^3/uL (3.29-11.43) 07/21/25 14:42 RBC 5.33 10^6/uL (3.85-5.65) 07/21/25 14:42 Hgb 15.30 g/dL (11.27-16.99) 07/21/25 14:42 Hct 45.9 % (37-53) 07/21/25 14:42 MCV 86.1 fl (82-101) 07/21/25 14:42 MCH 28.7 pg (27-33) 07/21/25 14:42 MCHC 33.3 g/dL (30-55) 07/21/25 14:42 RDW 12.7 % (12.1-15.1) 07/21/25 14:42 Plt Count 280 10^3/cmm (157-399) 07/21/25 14:42 MPV 10.6 fL (7.4-10.4) H 07/21/25 14:42 Neut % (Auto) 62.2 % 07/21/25 14:42 Lymph % (Auto) 25.6 % 07/21/25 14:42 [place] % (Auto) 7.1 % 07/21/25 14:42 Eos % (Auto) 4.2 % 07/21/25 14:42 Baso % (Auto) 0.5 % 07/21/25 14:42 Neut # (Auto) 4.70 10^3/uL (1.8-7.7) 07/21/25 14:42 Lymph # (Auto) 1.9 10^3/uL (0.8-4.8) 07/21/25 14:42 [place] # (Auto) 0.5 10^3/uL (0.2-0.9) 07/21/25 14:42 Eos # (Auto) 0.3 10^3/uL (0.0-0.8) 07/21/25 14:42 Baso # (Auto) 0.0 10^3/uL (0.0-0.1) 07/21/25 14:42 Nucleated RBC % (auto) 0 % 07/21/25 14:42 Nucleated RBCs # 0.0 /100WBC 07/21/25 14:42 PT 13.00 SECONDS (12.1-14.9) 07/21/25 14:42 INR 0.92 (0.8-1.2) 07/21/25 14:42 APTT 27.9 SECONDS (23.9-36.7) 07/21/25 14:42 Sodium 139 mmol/L (136-145) 07/21/25 14:42 Potassium 3.6 mmol/L (3.5-5.1) 07/21/25 14:42 Chloride 99 mmol/L (98-107) 07/21/25 14:42 Carbon Dioxide 24 mmol/L (22-29) 07/21/25 14:42 Anion Gap 19.6 (5-19) H 07/21/25 14:42 BUN 17 mg/dL (6-20) 07/21/25 14:42 Creatinine 1.3 mg/dL (0.7-1.2) H 07/21/25 14:42 GFR Calculation 56.5 mL/min (90-130) L 07/21/25 14:42 Glucose 280 mg/dL (65-115) H 07/21/25 14:42 POC Glucose 269 mg/dL (70-110) H 07/21/25 14:28 Calculated Osmolality 300 mOsm/kg (285-295) H 07/21/25 14:42 Calcium 9.0 mg/dL (8.5-10.5) 07/21/25 14:42 Total Bilirubin 0.5 mg/dL (0.15-1.2) 07/21/25 14:42 AST 26 U/L (0-40) 07/21/25 14:42 ALT 33 U/L (0-41) 07/21/25 14:42 Alkaline Phosphatase 97 U/L (40-130) 07/21/25 14:42 Total Protein 6.7 g/dL (6.6-8.7) 07/21/25 14:42 Albumin 4.1 g/dL (3.5-5.2) 07/21/25 14:42 Globulin 2.6 g/dL (1.3-4.6) 07/21/25 14:42 All radiology interpretation(s) finalized by discharge Discharge Plan Discharge Patient Disposition: Admitted As Inpatient Admit Provider: Cong Romero Clinical Impression: TIA (transient ischemic attack) Condition: Stable Discharge Diet: Diabetic and Low Cholesterol Discharge Activity: Increase activity as tolerated Coding Level of Care Code ED Gas Substation Operator for Sneha Nolasco
--- NOTE | 2025-07-21 15:36 | DCPLANNER ---
Addendum entered by Monse Winkler 07/21/25 17:35: [facility] called back at 1546, spoke to . Tim called [facility] at [phone] Fuentes back on the phone. Original Note: Dr. Matt asked for [facility] at 1523. Called connected at 1524 lasted until 1528. Images clouded in call. [facility] 2 LKW 1300 per doc.
--- NOTE | 2025-07-21 15:58 | PC.NURSE ---
Dr. Matt stated to pull TNK per [facility] stroke center, this nurse informed Padma RN that VARNISH MIXER cannot give TNK, RN pulled TNK while this nurse assessed pt, started second line, while in room Dr. Matt verbally stated Hold TNK, Padma RN notified and aware, at this time TNK not given but is pulled and with Padma RN.
--- NOTE | 2025-07-21 16:29 | PM.HP ---
Providers/Chief Complaint Admitting Physician: Heather Chief Complaint: stroke like symptoms (1.5hrsago) History of Present Illness Stevie Rushing is a 59 year old male with a history of type 2 diabetes, arrhythmia, hyperlipidemia and possible hypertension presents with the sudden onset of weakness and heaviness in the bilateral arms as well as dizziness. Per his brother who is with him he also reported slurred speech. In the emergency room he had an NIH score of 2. His symptoms quickly resolved. He currently is without deficit. Patient describes she has a history of migraine headaches and he has had 1 on and off for about a week now. He denies diagnosis of migraine with stroke mimic. He also denies history of prior TIA or stroke symptoms. Denies MO. Review of Systems Const: Denies: fever(s) or chills Eyes: Denies: change in vision ENMT: Denies: throat pain or nasal congestion Card: Denies: chest pain or palpitations Resp: Denies: dyspnea or productive cough GI: Denies: abdominal pain, nausea, vomiting or change in stool character : Denies: difficulty urinating or dysuria Musc: Denies: back pain or extremity pain Skin/Breast: Denies: rash or lesions Neuro: Reports: headache(s) (describes occipital MARROQUIN with photophobia and sensitivity to sounds); Denies: dizziness Psych: Denies: anxiety or depression Kj/Lymph: Denies: easy bruising or easy bleeding Medications/Allergies Home Medications ?Medication ?Instructions ?Recorded ?Confirmed ?Last Taken ?Type aspirin 81 mg tablet,delayed 81 mg PO DAILY 04/05/24 09/26/24 Unknown History release diltiazem HCl 360 mg 360 mg PO DAILY 04/05/24 09/26/24 Unknown History capsule,extended release 24 hr (Cardizem CD) dulaglutide 1.5 mg/0.5 mL mg SUBCUT .weekly 04/05/24 09/26/24 Unknown History subcutaneous pen injector gemfibrozil 600 mg tablet 600 mg PO BID 04/05/24 09/26/24 Unknown History glimepiride 4 mg tablet 4 mg PO DAILY 04/05/24 09/26/24 Unknown History lisinopril 40 mg tablet 40 mg PO DAILY 04/05/24 09/26/24 Unknown History venlafaxine 150 mg tablet,extended 150 mg PO DAILY 04/05/24 09/26/24 Unknown History release 24 hr vitamin E mixed 400 unit capsule unit PO DAILY 04/05/24 09/26/24 Unknown History allopurinol 300 mg tablet 300 mg PO DAILY 07/21/25 07/21/25 07/21/25 History clonidine HCl 0.2 mg tablet 0.2 mg PO BID 07/21/25 07/21/25 07/21/25 History disulfiram 250 mg tablet 250 mg PO DAILY 07/21/25 07/21/25 07/21/25 History ergocalciferol (vitamin D2) 1,250 1,250 mcg PO .2XWEEKLY 07/21/25 07/21/25 Unknown History mcg (50,000 unit) capsule hydrochlorothiazide 25 mg tablet 25 mg PO DAILY 07/21/25 07/21/25 07/21/25 History Allergies Allergy/AdvReac Type Severity Reaction Status Date / Time No Known Allergies Allergy Unverified 09/26/24 13:29 PFSH Acute PFSH: Medical History Hypertension H/O cardiac arrhythmia Hyperlipemia Family History Father Diabetes CAD (coronary artery disease) Hypertension Hyperlipidemia Social History Smoking and tobacco/nicotine status: former use of tobacco/nicotine Quit status (tobacco/nicotine): has quit using Year quit tobacco: 2007 Former quit date comment: smoked 2 packs per day x 20 years Alcohol intake: former Year of sobriety/quit date alcohol: 2007 Substance/Drug Use: current Substance/Drug use frequency: daily Household members: none Housing: House Marital status: Number of children: 1 Pets and animals: Yes Pets & animals: cat(s) Vitals/I&O/Wt Last Vital Signs Temp 97.6 F 07/21/25 14:25 Pulse 85 07/21/25 15:32 Resp 17 07/21/25 14:25 BP 128/76 07/21/25 15:32 Pulse Ox 91 07/21/25 15:32 O2 Del Method Room Air 07/21/25 15:32 Weight last 48 hrs Weight 136.078 kg Physical Exam Narrative: Tall man pale lying in bed in the emergency department in no acute distress Neuro alert and oriented person place time and situation NIH: 0 HEENT head is normocephalic atraumatic pupils equal round reactive light and accommodation extraocular muscles are intact there is no scleral icterus mucous membranes are moist and pink without lesions or exudates neck is supple no JVD carotid bruits or lymphadenopathy Heart is regular normal S1-S2 without murmurs clicks gallops or rubs Lungs clear to auscultation without wheezes rales or rhonchi Abdomen obese soft nontender nondistended normal active bowel sounds no hepatosplenomegaly Extremities no clubbing cyanosis or edema Psych mood and affect are appropriate, questionable slowed mentation Back no significant kyphosis or scoliosis no CVA tenderness Skin scratches to the right ramesh from his cat otherwise no lesions or rashes noted Data 07/21/25 14:42 07/21/25 14:42 Other Imaging: Radiologist's impression: FINDINGS: Right common carotid artery: No stenosis. No dissection or occlusion. Mild atherosclerotic calcification at the carotid bulb/bifurcation. Right internal carotid artery: No stenosis of the extracranial segment. No dissection or occlusion. Right external carotid artery: No occlusion or stenosis of the origin. Left common carotid artery: No stenosis. No dissection or occlusion. Mild atherosclerotic calcification at the carotid bulb/bifurcation. Left internal carotid artery: No stenosis of the extracranial segment. No dissection or occlusion. Left external carotid artery: No occlusion or stenosis of the origin. Right vertebral artery: No stenosis. No dissection or occlusion. Left vertebral artery: No stenosis. No dissection or occlusion. CT Head: My impression: I assessed some mild cerebral atrophy and cerebellar atrophy out of proportion to his age of 59 Radiologist's impression: IMPRESSION: 1. No evidence of intracranial hemorrhage or mass effect. 2. No acute intracranial findings. A&P Assessment and plan 1. TIA (transient ischemic attack): 2. Type 2 diabetes mellitus without complication, without long-term current use of insulin: 3. Primary hypertension: 4. Mixed hyperlipidemia: 5. MARIANA (obstructive sleep apnea): 6. H/O cardiac arrhythmia: Plan: Patient will be brought into the hospital for observation status for workup of TIA and serial neurologic exams. CTA of head and neck already done in the emergency room which is negative. Therefore we will proceed with echocardiogram. He will be placed on telemetry to monitor for arrhythmias, recalling that he has a history. He has been seen in the cardiology clinic twice possibly for this reason in 2023. He will continue aspirin 81 mg we will add Plavix he will be placed on a statin as per guidelines. We will check a hemoglobin A1c. Metformin will need to be held due to the dye given with the CTA. Patient will require stroke education. And patient will be educated on lifestyle modification and prevention of stroke. PDMP PDMP Reviewed: Not Reviewed Attestations Medical Necessity Statement*: Patient is placed on the hospital in observation status. Expected length of stay is less than 2 midnights Coding Level of Care Code Acute Code for Chg Fwd Diagnoses TIA (transient ischemic attack) G45.9 Type 2 diabetes mellitus without complication, without long-term current use of insulin E11.9 Diabetes mellitus type: type 2 Diabetes mellitus half-way insulin use: without rat exterminator use Diabetes mellitus complication status: without complication Primary hypertension I10 Hypertension type: primary hypertension Mixed hyperlipidemia E78.2 Hyperlipidemia type: mixed hyperlipidemia MARIANA (obstructive sleep apnea) G47.33 H/O cardiac arrhythmia Z86.79
--- NOTE | 2025-07-21 18:52 | PC.NURSE ---
Admitted to [facility] room 107 from ER via wheelchair. No reports of pain or discomfort.
[2025-07-21 20:57] LABS: Glucose Urine UA Negative (Normal); Nitrate Urine Negative (Negative)
[2025-07-21 21:00] LABS: Add Urine Microscopic? YES
[2025-07-21 21:04] LABS: PCP Screen Urine Negative (Negative)
[2025-07-21 21:24] LABS: Specific Gravity, Urine 1.046 (1.005-1.030)
[2025-07-21 21:25] LABS: UA Slide Review UA Slide Review Perf
[2025-07-22] VITALS (7 sets, daily range): BP systolic 143–172; BP diastolic 79–106; PULSE 69–79; RESP 10–20; TEMP 36.3–36.5; O2SAT 91–95; BMI 35.6
[2025-07-22 02:33] LABS: Cholesterol 225 mg/dL (0-200); HDL Cholesterol 30 mg/dL (60-100); Triglycerides 158 mg/dL (0-150)
[2025-07-22 02:47] LABS: Estmated Average Glucose 163; Hemoglobin A1C 7.3 % (4.0-6.0)
[2025-07-22] MEDS: venlafaxine ER (24HR) 150 mg Capsule PO (08:14)
[2025-07-22] MEDS: dilTIAZem ER (24HR) 180 mg Capsule 360 MG PO (08:14)
--- NOTE | 2025-07-22 10:43 | PC.SLP ---
Pt not recommended for Speech therapy intervention and WNL per evaluation completed 07/22/25.
--- NOTE | 2025-07-22 11:57 | PC.CHAP ---
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 insulation helper visit [] Patient/Family/Request visit [] Outpatient visit [] Follow-up visit [] Physician referral [] Code/Alert [x] Routine visit [] Staff referral [] Actively dying [] Patient sleeping [] Family support [] [] Out of room [] Palliative care [] [] Receiving care in room [] Pre-surgical visit [] Trauma [] Long length of stay [] ICU visit [] Other: Relational/Emotional Strength [] Patient feels connected with others/family/visitors/staff [] Distress [] Loneliness/isolation [] Abandonment Spirituality of Patient [] Person of Sherin [] Attends Islam of their Sherin [] Believes in Prayer [] Reads Bible or Latter-Day materials [] There are Spiritual issues to be addressed Algebra Teacher Interventions [] Prayer [] Active listening [] Non-anxious presence [] Spiritual/emotional support [] Crisis/trauma care [] Spiritual counseling [] Bereavement support [] Provided bereavement packet [] Provided Bible/devotional materials [] Provided toy/stuffed animal, coloring book to patient or family member [] Provided Communion [] Anointing/[place] [] Salvation [] Completed spiritual assessment [] Other: Impact on Illness or Injury [] Angry [] Fearful [] Anxious [] Often cries [] Exhaustion [] Unable to work [] Unable to attend methodist [] Unable to walk/stand [] Unable to read [] Unable to drive [] Unable to eat/drink [] Unable to sleep [] Unable to be with family [] Patient intubated [] Other: Summary Time spent with patient
--- NOTE | 2025-07-22 14:11 | PC.PT ---
Eval attempted. Pt refused due to severe headache and BP at 161/101. Nursing spoken with and agreed to hold for now.
--- NOTE | 2025-07-22 14:41 | PM.DCS ---
Discharge Providers Date of Admission: 07/21/25 16:43 Date of Discharge: July 22, 2025 Attending Provider at Admission: Cong Romero DO Attending Provider at Discharge: Cong Romero DO Diagnoses at Discharge Discharge Diagnosis 1. TIA (transient ischemic attack): 2. Type 2 diabetes mellitus without complication, without long-term current use of insulin: 3. Primary hypertension: 4. Mixed hyperlipidemia: 5. MARIANA (obstructive sleep apnea): 6. H/O cardiac arrhythmia: Reason for Visit Reason for Visit: stroke like symptoms (1.5hrsago) Brief History: Stevie Rushing is a 59 year old male with a history of type 2 diabetes, arrhythmia, hyperlipidemia and possible hypertension presents with the sudden onset of weakness and heaviness in the bilateral arms as well as dizziness. Per his brother who is with him he also reported slurred speech. In the emergency room he had an NIH score of 2. His symptoms quickly resolved. He currently is without deficit. Hospital Course Hospital Course Patient was placed on observation and serial neurologic exams were done. Echocardiogram was completed however difficulty with viewing the echocardiogram and was unable to be read in a timely manner. I think it is reasonable for patient to get his results within 1 to 3 days outpatient. He remains hypertensive on 3 different medications will increase hydrochlorothiazide from 25-50. Otherwise recommend nephrology consult for hypertensive management. He is instructed to changes diet and other risk factor modifications. He will be sent home with instructions for the Mediterranean diet and about his TIA. Physical Exam Narrative: Tall man pale lying in bed in the emergency department in no acute distress Neuro alert and oriented person place time and situation NIH: 0 Heart is regular normal S1-S2 without murmurs clicks gallops or rubs Lungs clear to auscultation without wheezes rales or rhonchi Abdomen obese soft nontender nondistended normal active bowel sounds no hepatosplenomegaly Extremities no clubbing cyanosis or edema Discharge Data Studies Completed and Pending Completed Studies During Hospitalization Category Date Time Status CT head thrombolytic [id number] Stat Cat Scan 07/21/25 14:29 Completed CTA head neck [CT angio headneck* [id number]] Stat Cat Scan 07/21/25 14:50 Completed Pending at discharge Category Date Time Status CV. echo complete* [id number] Routine Ultrasound 07/22/25 18:43 Taken Radiology Impressions Head CT 07/21/25 14:29 IMPRESSION: 1. No evidence of intracranial hemorrhage or mass effect. 2. No acute intracranial findings. Notified Hardik Matt DO at 07/21/2025 2:49 PM. Head/Neck CTA 07/21/25 14:50 IMPRESSION: No large vessel stenosis or occlusion. IMPRESSION: No stenosis or occlusion. REFERENCES: NASCET CRITERIA. The degree of stenosis in the cervical segment of the internal carotid artery is based on NASCET criteria. Normal is no stenosis. Mild is less than 50% stenosis. Moderate is 50-69% stenosis. Severe is 70% to 99% stenosis. Total occlusion is no detectable patent lumen. Laboratory Results WBC 7.57 10^3/uL (3.29-11.43) 07/21/25 14:42 RBC 5.33 10^6/uL (3.85-5.65) 07/21/25 14:42 Hgb 15.30 g/dL (11.27-16.99) 07/21/25 14:42 Hct 45.9 % (37-53) 07/21/25 14:42 MCV 86.1 fl (82-101) 07/21/25 14:42 MCH 28.7 pg (27-33) 07/21/25 14:42 MCHC 33.3 g/dL (30-55) 07/21/25 14:42 RDW 12.7 % (12.1-15.1) 07/21/25 14:42 Plt Count 280 10^3/cmm (157-399) 07/21/25 14:42 MPV 10.6 fL (7.4-10.4) H 07/21/25 14:42 Neut % (Auto) 62.2 % 07/21/25 14:42 Lymph % (Auto) 25.6 % 07/21/25 14:42 Gillespie % (Auto) 7.1 % 07/21/25 14:42 Eos % (Auto) 4.2 % 07/21/25 14:42 Baso % (Auto) 0.5 % 07/21/25 14:42 Neut # (Auto) 4.70 10^3/uL (1.8-7.7) 07/21/25 14:42 Lymph # (Auto) 1.9 10^3/uL (0.8-4.8) 07/21/25 14:42 Gillespie # (Auto) 0.5 10^3/uL (0.2-0.9) 07/21/25 14:42 Eos # (Auto) 0.3 10^3/uL (0.0-0.8) 07/21/25 14:42 Baso # (Auto) 0.0 10^3/uL (0.0-0.1) 07/21/25 14:42 Nucleated RBC % (auto) 0 % 07/21/25 14:42 Nucleated RBCs # 0.0 /100WBC 07/21/25 14:42 PT 13.00 SECONDS (12.1-14.9) 07/21/25 14:42 INR 0.92 (0.8-1.2) 07/21/25 14:42 APTT 27.9 SECONDS (23.9-36.7) 07/21/25 14:42 Sodium 139 mmol/L (136-145) 07/21/25 14:42 Potassium 3.6 mmol/L (3.5-5.1) 07/21/25 14:42 Chloride 99 mmol/L (98-107) 07/21/25 14:42 Carbon Dioxide 24 mmol/L (22-29) 07/21/25 14:42 Anion Gap 19.6 (5-19) H 07/21/25 14:42 BUN 17 mg/dL (6-20) 07/21/25 14:42 Creatinine 1.3 mg/dL (0.7-1.2) H 07/21/25 14:42 GFR Calculation 56.5 mL/min (90-130) L 07/21/25 14:42 Glucose 280 mg/dL (65-115) H 07/21/25 14:42 POC Glucose 182 mg/dL (70-110) H 07/22/25 11:19 Estimat Average Glucose 163 07/22/25 01:55 Hemoglobin A1c 7.3 % (4.0-6.0) H 07/22/25 01:55 Calculated Osmolality 300 mOsm/kg (285-295) H 07/21/25 14:42 Calcium 9.0 mg/dL (8.5-10.5) 07/21/25 14:42 Total Bilirubin 0.5 mg/dL (0.15-1.2) 07/21/25 14:42 AST 26 U/L (0-40) 07/21/25 14:42 ALT 33 U/L (0-41) 07/21/25 14:42 Alkaline Phosphatase 97 U/L (40-130) 07/21/25 14:42 Total Protein 6.7 g/dL (6.6-8.7) 07/21/25 14:42 Albumin 4.1 g/dL (3.5-5.2) 07/21/25 14:42 Globulin 2.6 g/dL (1.3-4.6) 07/21/25 14:42 Triglycerides 158 mg/dL (0-150) H 07/22/25 01:55 Cholesterol 225 mg/dL (0-200) H 07/22/25 01:55 LDL Cholesterol, Calc 163 mg/dL (50-129) H 07/22/25 01:55 HDL Cholesterol 30 mg/dL (60-100) L 07/22/25 01:55 LDL/HDL Ratio 5.43 RATIO (0.00-3.22) H 07/22/25 01:55 Cholesterol/HDL Ratio 7.50 mg/dL (1.0-5.00) H 07/22/25 01:55 Urine Color Yellow (Yellow) 07/21/25 20: Urine Appearance Clear (CLEAR) 07/21/25 20: Urine pH 6.0 (5-7) 07/21/25 20:28 Ur Specific [place] 1.046 (1.005-1.030) H 07/21/25 20:28 Urine Protein Negative (Negative) 07/21/25 20:28 Urine Glucose (UA) Negative (Normal) 07/21/25 20:28 Urine Ketones Negative (Negative) 07/21/25 20: Urine Blood Negative (Negative) 07/21/25 20: Urine Nitrate Negative (Negative) 07/21/25 20: Urine Bilirubin Negative (Negative) 07/21/25 20: Urine Urobilinogen 0.2 mg/dL (Negative) 07/21/25 20:28 Ur Leukocyte Esterase Negative (Negative) 07/21/25 20:28 Urine RBC 0-2 /hpf (0-2) 07/21/25 20:28 Urine WBC 0-5 /hpf (0-5) 07/21/25 20:28 Ur Squamous Epith Cells 0-5 /hpf (0-5) 07/21/25 20:28 Calcium Oxalate Crystal 55-80 /hpf H 07/21/25 20:28 Amorphous Sediment Not Reportable 07/21/25 20:28 Urine Bacteria None seen /hpf (NONE) 07/21/25 20:28 Hyaline Casts 6.61 /lpf 07/21/25 20:28 Urine Opiates Screen Negative ng/mL (Negative) 07/21/25 20:28 Ur Barbiturates Screen Negative ng/mL (Negative) 07/21/25 20:28 Ur Phencyclidine Scrn Negative ng/mL (Negative) 07/21/25 20:28 Ur Amphetamines Screen Negative ng/mL (Negative) 07/21/25 20:28 U Benzodiazepines Scrn Negative ng/mL (Negative) 07/21/25 20:28 Urine Cocaine Screen Negative ng/mL (Negative) 07/21/25 20:28 U Marijuana (THC) Screen Negative ng/mL (Negative) 07/21/25 20:28 Vitals Last Vital Signs Temp 97.7 F 07/22/25 07:29 Pulse 69 07/22/25 07:29 Resp 20 H 07/22/25 12:25 BP 167/106 07/22/25 12:28 Pulse Ox 91 07/22/25 12:25 O2 Del Method Room Air 07/22/25 12:25 Discharge Plan Discharge Patient Disposition: Home Condition: Stable Prescriptions: New atorvastatin 40 mg Tablet 40 mg PO BEDTIME Qty: 30 0RF clopidogrel 75 mg Tablet 75 mg PO DAILY Qty: 30 0RF Continued diltiazem HCl [Cardizem CD] 360 mg capsule,extended release 24hr 360 mg PO DAILY lisinopril 40 mg tablet 40 mg PO DAILY aspirin 81 mg tablet,delayed release (DR/EC) 81 mg PO DAILY dulaglutide 1.5 mg/0.5 mL pen injector 1.5 mg SUBCUT .weekly glimepiride 4 mg tablet 4 mg PO DAILY venlafaxine 150 mg tablet extended release 24hr 150 mg PO DAILY vitamin E mixed 400 unit capsule 400 unit PO DAILY disulfiram 250 mg tablet 250 mg PO DAILY clonidine HCl 0.2 mg tablet 0.2 mg PO BID allopurinol 300 mg tablet 300 mg PO DAILY ergocalciferol (vitamin D2) 1,250 mcg (50,000 unit) Capsule 1,250 mcg PO .2XWEEKLY Changed hydrochlorothiazide 25 mg tablet 50 mg PO DAILY Qty: 30 0RF Discontinued gemfibrozil 600 mg tablet 600 mg PO BID 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 DC: Hospitalist Discharge Order = DC NOW: Discharge Order (Routine); Ordered 07/22/25 Ordered By: oCng Romero Discharge Diet: Diabetic and Low Cholesterol Discharge Activity: Increase activity as tolerated Patient Instructions: Mediterranean Diet (GEN), Patient Portal & Gonzalo Instructions, TIA Activity Restrictions/Additional Instructions: Stop gemfibrozil and replace with Lipitor at night Increase hydrochlorothiazide to 50 daily Follow-up with primary care physician in 1 to 3 days to review your echocardiogram results Discharge Attestations Time Spent in Discharge Care*: less than 30 min Quality Metrics Clinical Quality Measures [ No reported AMI, CVA or VTE this stay] Coding Level of Care Code Acute Code for Chg Fwd Diagnoses TIA (transient ischemic attack) G45.9 Type 2 diabetes mellitus without complication, without long-term current use of insulin E11.9 Diabetes mellitus type: type 2 Diabetes mellitus residential insulin use: without terminal make up operator use Diabetes mellitus complication status: without complication Primary hypertension I10 Hypertension type: primary hypertension Mixed hyperlipidemia E78.2 Hyperlipidemia type: mixed hyperlipidemia MARIANA (obstructive sleep apnea) G47.33 H/O cardiac arrhythmia Z86.79
--- NOTE | 2025-07-22 15:24 | PC.NURSE ---
Patient couldn't tell me his PCP so US advised him to call the walkin clinic in [facility] on Thursday and make a follow up in the next 4-7 days.
--- NOTE | 2025-07-22 15:56 | PC.NURSE ---
discharge instructions given and explained to pt and pt's father.plavix dose given for tomorrow (thursday).they verb understanding of instructions.discharged via w/c to exit at this time.brother to drive pt home
--- NOTE | 2025-07-22 18:43 | USCV_ITS ---
СергейStevie Age: 59 Gender: M : 1965 Exam Date: 07/22/2025 08:51 Ordering Phys: Cong Romero DO Technologist: Renan St [place] [facility] [place]: [place]IA BP: 172 / 105 HR: 72 Rhythm: Sinus Technical Quality: Adequate MEASUREMENTS (Male / Female) Normal Values 2D ECHO LV Diastolic Diameter PLAX 5.4 cm 4.2 - 5.9 / 3.9 - 5.3 cm IVS Diastolic Thickness 1.3 cm 0.6 - 1.0 / 0.6 - 0.9 cm IVS Systolic Thickness 1.8 cm LVPW Diastolic Thickness 0.9 cm 0.6 - 1.0 / 0.6 - 0.9 cm LVPW Systolic Thickness 2.0 cm LVOT Diameter 2.1 cm LV Ejection Fraction 2D Teich 59.2 % LV Ejection Fraction MOD 4C 70.0 % LV Ejection Fraction MOD 2C 62.1 % LV Ejection Fraction 2C AL 63.6 % LA Diameter 4.0 cm RA Systolic Volume 4C AL 43.4 ml RA Systolic Volume 4C MOD 42.1 ml LA Sys Volume AL 44.6 cm cubed LA Sys Volume Index AL 15.9 cm cubed/m squared Aorta at Sinotubular Diameter 2.9 cm IVC Diameter 1.8 cm M-MODE LA Ao Ratio MM 1.0 AV Cusp Separation MM 1.9 cm DOPPLER AV Peak Velocity 134.0 cm/s LVOT Peak Velocity 108.0 cm/s AV Area Cont Eq vti 3.2 cm squared AV Area Cont Eq pk 2.7 cm squared MV Peak Velocity 84.0 cm/s MV Area PHT 3.6 cm squared Mitral E to A Ratio 0.7 TR Peak Velocity 346.0 cm/s TR Peak Gradient 47.9 mmHg TR Mean Velocity 285.0 cm/s TR Mean Gradient 34.3 mmHg TR Velocity Time Integral 85.6 cm PV Peak Velocity 89.0 cm/s RV Ejection Time 0.3 s FINDINGS Left Ventricle Normal left ventricular size and systolic function, EF 62%. Mild hypertrophy of the septum. Normal diastolic function. Right Ventricle Normal right ventricular size and systolic function. Normal right ventricular size and systolic function. Right Atrium Normal right atrial size. Left Atrium Normal left atrial size. Mitral Valve Mild mitral valve regurgitation. Aortic Valve No aortic valve stenosis. Mild aortic valve regurgitation. Tricuspid Valve Trace tricuspid valve regurgitation. Pulmonic Valve No pulmonary valve stenosis. No pulmonary valve regurgitation. Pericardium No pericardial effusion. Aorta Normal size aortic root and proximal ascending aorta. IVC Normal inferior vena cava. CONCLUSIONS 1. Normal left ventricular cavity size and systolic function, EF 62%. 2. Mild hypertrophy of the left ventricular septum. 3. Mild mitral valve regurgitation 4. Mild aortic valve regurgitation Ravindra Persaud MD, FACC (Electronically Signed) Final Date: 22 July 2025 20:04 S
== END 2025-07-22 16:03 | disposition home or self-care (01) ==
LOC: ER 15:01 → CSU 16:43
PROVIDERS: Admitting Provider Internal Medicine; Emergency Provider Family Medicine; Visit Provider Internal Medicine
DX: G45.9 Transient cerebral ischemic attack, unspecified (principal); E11.9 Type 2 diabetes mellitus without complications; I10 Essential (primary) hypertension; E78.2 Mixed hyperlipidemia; G47.33 Obstructive sleep apnea (adult) (pediatric); Z86.79 Personal history of other diseases of the circulatory system; Z79.82 Long term (current) use of aspirin; Z83.3 Family history of diabetes mellitus; Z82.49 Family history of ischemic heart disease and other diseases of the circulatory system; Z87.891 Personal history of nicotine dependence
CPT/HCPCS: 36415; 36416; 70450; 70496; 70498; 80053; 80061; 80306; 81001; 82962; 83036; 85025; 85610; 85730; 92610; 93005; 93306; 96361; 96372; 96374; 97165; 99285; G0378; J1815; J7030; J9999

== ENCOUNTER → 2025-08-24 13:59 | Outpatient (BNVA) | payer MEDICARE, MEDICAID, SELFPAY | PROVIDERS: Visit Provider Internal Medicine Cardiovascular Disease | DX: R00.2 Palpitations (principal); I67.9 Cerebrovascular disease, unspecified; I65.23 Occlusion and stenosis of bilateral carotid arteries; R42 Dizziness and giddiness; Z79.02 Long term (current) use of antithrombotics/antiplatelets; Z79.82 Long term (current) use of aspirin; Z86.73 Personal history of transient ischemic attack (TIA), and cerebral infarction without residual deficits; Z87.891 Personal history of nicotine dependence | CPT/HCPCS: 99204 ==